=== PATIENT | male | born 1950 | race Caucasian/White ===

== ENCOUNTER 2018-08-23 18:08 | Inpatient (IN) | payer OTHER, MEDICAID ==
[~2018-08-23] VITALS: Ht 182.9 cm; Wt 90.7 kg
[~2018-08-23 18:08] MED LIST: ALBUTEROL SULF8.5 GM INH; ASPIR 8181 MG ORAL; AZITHROMYCIN250 MG ORAL; LEVOTHYROXINE25 MCG ORAL; METOPROLOL TART25 MG ORAL; PLAVIX75 MG ORAL; PRAVASTATIN SOD20 M1 PO; PROMETHAZINE-C118 M1 ORAL
[2018-08-23] MEDS ORDERED: ATORVASTATIN CA20 MG ORAL (18:21)
[2018-08-23] MEDS ORDERED: Aspirin Baby 81mg ORAL ONE (18:30)
--- NOTE | 2018-08-23 19:14 | NUR ---
ED Nurse Note:pt. came with c/o chest pain he is A/Ox4 ambulatory, blood sentt to labs, ASA given and pt. placed on cardiac monitor technician
--- NOTE | 2018-08-23 19:15 | NUR ---
ED Nurse Note: Report received from Ann Marie WALTER. Patient is resting calmy vss.
[2018-08-23 19:22] LABS: BASOPHILS % (AUTO) 1.1 % (0.0-2.0); EOSINOPHILS % (AUTO) 1.8 % (0.0-3.0); HEMATOCRIT 38.7 % (42.0-52.0); HEMOGLOBIN 13.1 G/DL (14.2-18.0); LYMPHOCYTES % (AUTO) 36.2 % (20.0-45.0); MEAN CORPUSCULAR VOLUME 91 FL (80-99); MONOCYTES % (AUTO) 4.2 % (1.0-10.0); NEUTROPHILS % (AUTO) 56.6 % (45.0-75.0); PLATELET COUNT 192 K/UL (150-450); RED BLOOD COUNT 4.27 M/UL (4.70-6.10); RED CELL DISTRIBUTION WIDTH 12.5 % (11.6-14.8); WHITE BLOOD COUNT 6.2 K/UL (4.8-10.8)
[2018-08-23 19:34] LABS: ANION GAP 9 mmol/L (5-15); BLOOD UREA NITROGEN 15 mg/dL (7-18); CALCIUM 9.3 MG/DL (8.5-10.1); CARBON DIOXIDE 26 MMOL/L (21-32); CHLORIDE 105 MMOL/L (98-107); CREATININE 1.1 MG/DL (0.55-1.30); POTASSIUM 3.8 MMOL/L (3.5-5.1); SODIUM 140 MMOL/L (136-145)
[2018-08-23 19:48] LABS: ALANINE AMINOTRANSFERASE 38 U/L (12-78); ALBUMIN 3.9 G/DL (3.4-5.0); ALBUMIN/GLOBULIN RATIO 1.2 (1.0-2.7); ALKALINE PHOSPHATASE 77 U/L (46-116); ASPARTATE AMINO TRANSFERASE 27 U/L (15-37); BILIRUBIN,TOTAL 0.4 MG/DL (0.2-1.0); CKMB 2.5 NG/ML (0.0-3.6); CREATINE KINASE 303 U/L (26-308)
[2018-08-23 19:50] VITALS: BP 120/67
--- NOTE | 2018-08-23 20:15 | NUR ---
ED Nurse Note: Patient resting calmly no s/s of acute distress. Patient reports no pain or discomfort at this time.
--- NOTE | 2018-08-23 21:48 | Emergency Room Report ---
History of Present Illness General Chief Complaint: Chest Pain Source: Patient Present Illness HPI Patient has a history of coronary artery disease. Patient status post stent placement. Patient presents emergency department today complaining acute onset of chest pain. Intermittently last few minutes throughout the last week. She complains of some shortness breath associated with it denies any leg pain leg swelling. Symptoms noted to be severe.No other modifying factors. No other associated signs and symptoms. No other complaints were noted. Allergies: Coded Allergies: No Known Allergies (Unverified , 12/17/12) Patient History Past Medical History: CAD, arrhyth Past Surgical History: PTCA Pertinent Family History: none Social History: Denies: smoking, alcohol use, drug use Reviewed Nursing Documentation: PMH: Agreed; PSxH: Agreed Nursing Documentation-PMH Past Medical History: No History, Except For Hx Cardiac Problems: Yes - arrythmia, stent Hx Hypertension: No Hx Pacemaker: No Hx Asthma: No Hx COPD: No Hx Diabetes: No Hx Cancer: No Hx Gastrointestinal Problems: Yes Hx Dialysis: No History Of Psychiatric Problem: No Hx Neurological Problems: Yes Hx Cerebrovascular Accident: No Hx Seizures: No Hx Vertigo: Yes Hx Syncope: Yes Hx Weakness: Yes Hx Fatigue: Yes Review of Systems All Other Systems: negative except mentioned in HPI Physical Exam Vital Signs Date Time Temp Pulse Resp B/P (MAP) Pulse Ox O2 Delivery O2 Flow Rate FiO2 08/23/18 18:11 98.2 77 16 127/73 97 Room Air Sp02 EP Interpretation: reviewed, normal General Appearance: normal inspection, well appearing, no apparent distress, alert Head: atraumatic Eyes: bilateral eye normal inspection ENT: normal ENT inspection, hearing grossly normal, normal voice Neck: normal inspection, full range of motion, supple, no bony tend Respiratory: normal inspection, lungs clear, normal breath sounds, no respiratory distress, no retraction, no wheezing Cardiovascular #1: regular rate, rhythm, no edema Gastrointestinal: normal inspection, normal bowel sounds, non tender, soft, no guarding, no hernia Genitourinary: no CVA tenderness Musculoskeletal: normal inspection, back normal, normal range of motion Neurologic: normal inspection, alert, responsive, speech normal Psychiatric: normal inspection, judgement/insight normal, mood/affect normal Skin: normal inspection, normal color, no rash Medical Decision Making Diagnostic Impression: Primary Impression: ACS (acute coronary syndrome) ER Course Patient presented to the emergency department today complaining of chest pain. Differential diagnoses include acute coronary syndrome, pulmonary embolism, pneumothorax, chest wall pain, pleurisy, pericarditis, acute anxiety reaction just to name a few. Given the severity of the patient's presentation I felt this is a highly complex patient. This patient required extensive workup. CBC , chemistry, EKG, chest x-ray, cardiac enzymes, liver profile were all obtained. 12-lead EKG performed for nontraumatic chest pain. [facility] documentation: EKG was performed. Please refer to below for interpretation. Patient had CBC and chemistry obtained. Both of which were normal. Patient's cardiac enzymes also normal. Patient had normal chest x-ray. However given patient's presentation history of cardiac disease of felt the patient quite admission further treatment. Case was discussed with Dr. Maher for admission. Labs Test 08/23/18 19:00 White Blood Count 6.2 K/UL (4.8-10.8) Red Blood Count 4.27 M/UL (4.70-6.10) Hemoglobin 13.1 G/DL (14.2-18.0) Hematocrit 38.7 % (42.0-52.0) Mean Corpuscular Volume 91 FL (80-99) Mean Corpuscular Hemoglobin 30.6 PG (27.0-31.0) Mean Corpuscular Hemoglobin Concent 33.8 G/DL (32.0-36.0) Red Cell Distribution Width 12.5 % (11.6-14.8) Platelet Count 192 K/UL (150-450) Mean Platelet Volume 6.3 FL (6.5-10.1) Neutrophils (%) (Auto) 56.6 % (45.0-75.0) Lymphocytes (%) (Auto) 36.2 % (20.0-45.0) Monocytes (%) (Auto) 4.2 % (1.0-10.0) Eosinophils (%) (Auto) 1.8 % (0.0-3.0) Basophils (%) (Auto) 1.1 % (0.0-2.0) Sodium Level 140 MMOL/L (136-145) Potassium Level 3.8 MMOL/L (3.5-5.1) Chloride Level 105 MMOL/L (98-107) Carbon Dioxide Level 26 MMOL/L (21-32) Anion Gap 9 mmol/L (5-15) Blood Urea Nitrogen 15 mg/dL (7-18) Creatinine 1.1 MG/DL (0.55-1.30) Estimat Glomerular Filtration Rate > 60 mL/min (>60) Glucose Level 134 MG/DL (74-106) Calcium Level 9.3 MG/DL (8.5-10.1) Total Bilirubin 0.4 MG/DL (0.2-1.0) Aspartate Amino Transf (AST/SGOT) 27 U/L (15-37) Alanine Aminotransferase (ALT/SGPT) 38 U/L (12-78) Alkaline Phosphatase 77 U/L (46-116) Total Creatine Kinase 303 U/L (26-308) Creatine Kinase MB 2.5 NG/ML (0.0-3.6) Creatine Kinase MB Relative Index 0.8 Troponin I 0.000 ng/mL (0.000-0.056) Pro-B-Type Natriuretic Peptide 147 pg/mL (0-125) Total Protein 7.2 G/DL (6.4-8.2) Albumin 3.9 G/DL (3.4-5.0) Globulin 3.3 g/dL Albumin/Globulin Ratio 1.2 (1.0-2.7) EKG Diagnostic Results Rate: normal Rhythm: NSR ST Segments: other - Right bundle-branch block Rhythm Strip Diag. Results EP Interpretation: yes Rate: 75 Rhythm: NSR, no PVC's, no ectopy Chest X-Ray Diagnostic Results Chest X-Ray Diagnostic Results : Chest X-Ray Ordered: Yes # of Views/Limited/Complete: 1 View Indication: Chest Pain EP Interpretation: Yes Interpretation: no consolidation, no effusion, no pneumothorax, no acute cardiopulmonary disease Impression: No acute disease Electronically Signed by: Electronically signed by Jay Cox MD Last Vital Signs Date Time Temp Pulse Resp B/P (MAP) Pulse Ox O2 Delivery O2 Flow Rate FiO2 08/23/18 19:50 97.6 66 16 120/67 97 Room Air Status: improved Disposition: ADMITTED INPATIENT Condition: Serious Referrals: YANNI CARREON (PCP) Jay Cox MD Aug 23, 2018 21:48
--- NOTE | 2018-08-23 21:54 | NUR ---
ED Nurse Note: Report called into Carmen RN, patient ready for transport to [facility], ambulatory with steady gait, no reported wounds, vss, no s/s of acute distress. Patient accompanied by ER-tech and RN to floor.
[2018-08-23 22:00] VITALS: BP 139/77
--- NOTE | 2018-08-23 22:00 | NUR ---
NURSE NOTES: Received report from Roro Jeffrey RN. Patient transported via gurney but ambulated to bed with no difficulty. Patient on room air. No signs of SOB. AOx4, no complaints of chest pain at this time but is complaining of right toe pain. IV site on Right wrist is intact ans patent. Dr. Maher notified regarding patient's whereabouts and for admission orders. New orders done and carried out. Skin is intact. Call light within reach. Bed brakes engaged.
[2018-08-23] MEDS ORDERED: Enalaprilat 2.5mg/2ml Inj IV PRN (22:30)
[2018-08-23] MEDS ORDERED: Morphine Sulfate 2mg/ml Inj IVP PRN (22:30)
[2018-08-23] MEDS ORDERED: Albuterol/Ipratropium 3ml neb HHN PRN (22:30)
[2018-08-23] MEDS ORDERED: Nitroglycerin Subl 0.4mg tab SL PRN (22:30)
[2018-08-23] MEDS ORDERED: Miralax 17gm pkt ORAL PRN (22:30)
[2018-08-23] MEDS ORDERED: dilTIAZem HCl 25mg/5ml Inj IV PRN (22:30)
[2018-08-23] MEDS ORDERED: Ketorolac 30mg Inj IV PRN (22:30)
[2018-08-24] VITALS: BP 127/66
--- NOTE | 2018-08-24 03:59 | NUR ---
NURSE NOTES: Patient requesting to go home in the morning. Informed that his request will be addressed in AM. Patient has no distress, no SOB.
[2018-08-24 04:00] VITALS: BP 130/60
[2018-08-24] MEDS: Levothyroxine 25mcg tab ORAL SCH (06:01)
--- NOTE | 2018-08-24 06:02 | NUR ---
NURSE NOTES: Synthroid 25mcg to be given, patient refused medication as verbalized "I no longer take this medication". Will request to have this discontinue in AM.
--- NOTE | 2018-08-24 07:23 | NUR ---
NURSE NOTES: Received report from SABA Morales. Patient is resting in bed, in stable condition. No s/sx of SOB, breathing is even and unlabored. Denies any presence of pain or discomfort at this time. Bed is in lowest position, brakes engaged. Call light is kept within easy reach. Will continue to monitor patient.
--- NOTE | 2018-08-24 07:36 | NUR ---
HAND-OFF: Report given to SABA Swann.
[2018-08-24 08:00] VITALS: BP 132/68
[2018-08-24 08:04] LABS: BASOPHILS % (AUTO) 0.6 % (0.0-2.0); EOSINOPHILS % (AUTO) 2.2 % (0.0-3.0); HEMATOCRIT 40.4 % (42.0-52.0); HEMOGLOBIN 13.8 G/DL (14.2-18.0); LYMPHOCYTES % (AUTO) 37.4 % (20.0-45.0); MEAN CORPUSCULAR VOLUME 90 FL (80-99); MONOCYTES % (AUTO) 4.7 % (1.0-10.0); NEUTROPHILS % (AUTO) 55.1 % (45.0-75.0); PLATELET COUNT 183 K/UL (150-450); RED BLOOD COUNT 4.49 M/UL (4.70-6.10); RED CELL DISTRIBUTION WIDTH 12.1 % (11.6-14.8); WHITE BLOOD COUNT 5.6 K/UL (4.8-10.8)
[2018-08-24 08:23] LABS: INR 0.9 (0.9-1.1)
[2018-08-24] MEDS: Aspirin Baby 81mg ORAL SCH (08:44)
[2018-08-24] MEDS: Metoprolol 25mg tab ORAL SCH ×3 (08:44→17:45)
[2018-08-24] MEDS: Heparin 5000 units/ml inj SUBQ SCH ×2 (08:44→20:42)
[2018-08-24 08:49] LABS: CHOLESTEROL 180 MG/DL (< 200); HDL CHOLESTEROL 29 MG/DL (40-60); TRIGLYCERIDES 200 MG/DL (30-150)
--- NOTE | 2018-08-24 10:25 | NUR ---
CASE MANAGEMENT:REVIEW 68 YR OLD MALE FROM HOME TO ER CC; CHEST PAIN THAT RADIATES TO BACK. SOB. N/V SI: ACS 98.2 77 16 127/73 97% ON RA H/H-13.1/38.7 TROPONIN(-) IS: ASA GIVEN STAINED GLASS GLAZIER ASA PO CXR : TO TELEMETRY IS: PLAVIX PO QD LOPRESSOR PO BID ASA PO QD HEPARIN SQ Q12 SYNTHROID PO QAM PLAN: CARDIAC CONSULT 2DECHO
--- NOTE | 2018-08-24 10:33 | NUR ---
INTERQUAL CRITERIA MET FOR OBSERVATION
--- NOTE | 2018-08-24 10:57 | NUR ---
INSURANCE ALL CLINICALS AND REVIEWS FAXED TO: GORDON BENSONM:SHANNON F:[phone] [place] [phone] P:[phone] [place] [phone]
--- NOTE | 2018-08-24 11:47 | Diagnostic Imaging Report ---
Indication: Cough Comparison: 11/24/2015 A single view chest radiograph was obtained. Findings: Cardiomediastinal appearance is within normal limits for age. The lungs are clear. Pulmonary vascularity is appropriate. The diaphragmatic contour is smooth and costophrenic angles are sharp. No pleural effusions are identified. The bones are unremarkable. Impression: No acute findings
--- NOTE | 2018-08-24 11:51 | History and Physical ---
History of Present Illness General Date patient seen: Aug 24, 2018 Reason for Hospitalization: Chest Pain Present Illness HPI 68 year old male with hx cindy coronary artery disease, status post stent placement presented to emergency department today complaining acute onset of chest pain. Intermittently last few minutes throughout the last week. She complains of some shortness breath associated with it denies any leg pain leg swelling. He is admitted to telemetry for further work up. Allergies: Coded Allergies: No Known Allergies (Unverified , 12/17/12) Medication History Scheduled Aspirin* (Aspir 81*), 81 MG ORAL DAILY, (Reported) Atorvastatin Calcium* (Atorvastatin Calcium*), 20 MG ORAL BEDTIME, (Reported) Clopidogrel Bisulfate* (Plavix*), 75 MG ORAL DAILY, (Reported) Levothyroxine Sodium* (Levothyroxine Sodium*), 25 MCG ORAL DAILY, (Reported) Metoprolol Tartrate* (Metoprolol Tartrate*), 50 MG ORAL BID, (Reported) Miscellaneous Medications Pravastatin Sod* (Pravastatin Sod*), 20 MG PO, (Reported) Patient History Healthcare decision maker Resuscitation status Full Code Advanced Directive on File No Past Medical/Surgical History Past Medical/Surgical History: (1) H/O heart artery stent (2) Hypothyroidism (3) History of hypertension Review of Systems All Other Systems: negative except mentioned in HPI Physical Exam General Appearance: WD/WN Lines, tubes and drains: peripheral, central line HEENT: normocephalic, atraumatic Neck: non-tender, normal alignment Respiratory/Chest: chest wall non-tender, lungs clear Breasts: no masses Cardiovascular/Chest: normal peripheral pulses, normal rate Abdomen: normal bowel sounds Genitourinary/Rectal: normal genital exam Last 24 Hour Vital Signs Date Time Temp Pulse Resp B/P (MAP) Pulse Ox O2 Delivery O2 Flow Rate FiO2 08/24/18 09:00 Room Air 08/24/18 08:44 76 132/68 08/24/18 08:00 97.9 76 16 132/68 (89) 97 76 08/24/18 08:00 71 08/24/18 04:04 81 08/24/18 04:00 96.4 79 18 130/60 (83) 95 79 08/24/18 00:00 97.5 76 18 127/66 (86) 96 76 08/23/18 23:19 76 1/10/19 22:28 Room Air 08/23/18 22:27 74 08/23/18 22:00 97.5 63 18 139/77 (97) 95 63 08/23/18 21:56 97.6 66 16 129/84 97 Room Air 08/23/18 19:50 97.6 66 16 120/67 97 Room Air 08/23/18 19:16 77 16 Room Air 08/23/18 18:11 98.2 77 16 127/73 97 Room Air Intake and Output 08/23/18 08/24/18 19:00 07:00 Intake Total 0 ml Balance 0 ml Intake Oral 0 ml # Voids 2 Laboratory Tests Test 08/23/18 19:00 08/24/18 07:13 White Blood Count 6.2 K/UL (4.8-10.8) 5.6 K/UL (4.8-10.8) Red Blood Count 4.27 M/UL (4.70-6.10) L 4.49 M/UL (4.70-6.10) L Hemoglobin 13.1 G/DL (14.2-18.0) L 13.8 G/DL (14.2-18.0) L Hematocrit 38.7 % (42.0-52.0) L 40.4 % (42.0-52.0) L Mean Corpuscular Volume 91 FL (80-99) 90 FL (80-99) Mean Corpuscular Hemoglobin 30.6 PG (27.0-31.0) 30.8 PG (27.0-31.0) Mean Corpuscular Hemoglobin Concent 33.8 G/DL (32.0-36.0) 34.2 G/DL (32.0-36.0) Red Cell Distribution Width 12.5 % (11.6-14.8) 12.1 % (11.6-14.8) Platelet Count 192 K/UL (150-450) 183 K/UL (150-450) Mean Platelet Volume 6.3 FL (6.5-10.1) L 6.2 FL (6.5-10.1) L Neutrophils (%) (Auto) 56.6 % (45.0-75.0) 55.1 % (45.0-75.0) Lymphocytes (%) (Auto) 36.2 % (20.0-45.0) 37.4 % (20.0-45.0) Monocytes (%) (Auto) 4.2 % (1.0-10.0) 4.7 % (1.0-10.0) Eosinophils (%) (Auto) 1.8 % (0.0-3.0) 2.2 % (0.0-3.0) Basophils (%) (Auto) 1.1 % (0.0-2.0) 0.6 % (0.0-2.0) Sodium Level 140 MMOL/L (136-145) Potassium Level 3.8 MMOL/L (3.5-5.1) Chloride Level 105 MMOL/L (98-107) Carbon Dioxide Level 26 MMOL/L (21-32) Anion Gap 9 mmol/L (5-15) Blood Urea Nitrogen 15 mg/dL (7-18) Creatinine 1.1 MG/DL (0.55-1.30) Estimat Glomerular Filtration Rate > 60 mL/min (>60) Glucose Level 134 MG/DL (74-106) H Calcium Level 9.3 MG/DL (8.5-10.1) Total Bilirubin 0.4 MG/DL (0.2-1.0) Aspartate Amino Transf (AST/SGOT) 27 U/L (15-37) Alanine Aminotransferase (ALT/SGPT) 38 U/L (12-78) Alkaline Phosphatase 77 U/L (46-116) Total Creatine Kinase 303 U/L (26-308) Creatine Kinase MB 2.5 NG/ML (0.0-3.6) Creatine Kinase MB Relative Index 0.8 Troponin I 0.000 ng/mL (0.000-0.056) 0.004 ng/mL (0.000-0.056) Pro-B-Type Natriuretic Peptide 147 pg/mL (0-125) H Total Protein 7.2 G/DL (6.4-8.2) Albumin 3.9 G/DL (3.4-5.0) Globulin 3.3 g/dL Albumin/Globulin Ratio 1.2 (1.0-2.7) Prothrombin Time 9.6 SEC (9.30-11.50) Prothromb Time International Ratio 0.9 (0.9-1.1) Activated Partial Thromboplast Time 30 SEC (23-33) C-Reactive Protein, Quantitative < 0.4 mg/dL (0.00-0.90) Triglycerides Level 200 MG/DL (30-150) H Cholesterol Level 180 MG/DL (< 200) LDL Cholesterol 116 mg/dL (<100) H HDL Cholesterol 29 MG/DL (40-60) L Cholesterol/HDL Ratio 6.2 (3.3-4.4) H Thyroid Stimulating Hormone (TSH) 4.414 uiU/mL (0.358-3.740) Height (Feet): 6 Height (Inches): 0.00 Weight (Pounds): 200 Medications Current Medications Medications (Trade) Dose Ordered Sig/Lizbeth Route PRN Reason Start Time Stop Time Status Last Admin Dose Admin Acetaminophen (Tylenol) 650 mg Q4H PRN ORAL FEVER 08/23/18 22:30 09/22/18 22:29 Albuterol/ Ipratropium (Albuterol/ Ipratropium) 3 ml EVERY 4 HOURS PRN HHN Shortness of Breath 08/23/18 22:30 08/28/18 22:29 Aspirin (ASA) 162 mg DAILY ORAL 08/24/18 09:00 09/23/18 08:59 08/24/18 08:44 Atorvastatin Calcium (Lipitor) 20 mg BEDTIME ORAL 08/24/18 21:00 09/23/18 20:59 Clopidogrel Bisulfate (Plavix) 75 mg DAILY ORAL 08/24/18 09:00 09/23/18 08:59 08/24/18 08:44 Diltiazem HCl (Cardizem) 10 mg EVERY HOUR PRN IV heart rate more than 120, 08/23/18 22:30 09/22/18 22:29 Enalaprilat (Vasotec) 2.5 mg EVERY 6 HOURS PRN IV sbp more than 160 08/23/18 22:30 09/22/18 22:29 Heparin Sodium (Porcine) (Heparin 5000 units/ml) 5,000 units EVERY 12 HOURS SUBQ 08/24/18 09:00 09/23/18 08:59 Ketorolac Tromethamine (Toradol 30mg) 30 mg Q6H PRN IV moderate pain ( 4-6) 08/23/18 22:30 08/28/18 22:29 Levothyroxine Sodium (Synthroid) 25 mcg ACBREAKFAST ORAL 08/24/18 06:30 09/23/18 06:29 Metoprolol Tartrate (Lopressor) 50 mg BID ORAL 08/24/18 09:00 09/23/18 08:59 08/24/18 08:44 Morphine Sulfate (Morphine Sulfate) 2 mg EVERY 4 HOURS PRN IVP severe Pain (Pain Scale 7-10) 08/23/18 22:30 08/30/18 22:29 08/23/18 23:13 Nitroglycerin (Ntg) 0.4 mg Q5M PRN SL Prn Chest Pain 08/23/18 22:30 09/22/18 22:29 Ondansetron HCl (Zofran) 4 mg Q6H PRN IVP Nausea & Vomiting 08/23/18 22:30 09/22/18 22:29 Polyethylene Glycol (Miralax) 17 gm DAILYPRN PRN ORAL Constipation 08/23/18 22:30 09/22/18 22:29 Temazepam (Restoril) 15 mg HSPRN PRN ORAL Insomnia 08/23/18 22:30 08/30/18 22:29 Assessment/Plan Problem List: (1) ACS (acute coronary syndrome) ICD Codes: I24.9 - Acute ischemic heart disease, unspecified SNOMED: 359759151 (2) Hypothyroidism ICD Codes: E03.9 - Hypothyroidism, unspecified SNOMED: 43238117 (3) History of hypertension ICD Codes: Z86.79 - Personal history of other diseases of the circulatory system SNOMED: 124094755 (4) H/O heart artery stent ICD Codes: Z95.5 - Presence of coronary angioplasty implant and graft SNOMED: 12995857, 473022209 Assessment/Plan serial ekg, troponin were negative for acute changes echocardiogram cardiology to see synthroid replacement monitor BP dvt prophylaxis. Liz Maher MD Aug 24, 2018 11:51
[2018-08-24 12:00] VITALS: BP 124/71
--- NOTE | 2018-08-24 14:30 | NUR ---
HAND-OFF: Report given to SABA Jewell.
--- NOTE | 2018-08-24 15:00 | NUR ---
NURSE NOTES: received patient report from rajani aguiar. patient is stable. no acute distress noted. ambulatory, staedy. no arrythmias reported during the night. will continue plans of care.
[2018-08-24 16:00] VITALS: BP 138/63
--- NOTE | 2018-08-24 17:32 | Cardiology Report ---
APPROVED REPORT EXAM: Two-dimensional and M-mode echocardiogram with Doppler and color Doppler. INDICATION Left ventricular function M-Mode DIMENSIONS IVSd0.8 (0.7-1.1cm)Left Atrium (MM)3.0 (1.6-4.0cm) LVDd3.4 (3.5-5.6cm)Aortic Root3.3 (2.0-3.7cm) PWd1.1 (0.7-1.1cm)Aortic Cusp Exc.1.8 (1.5-2.0cm) LVDs2.2 (2.5-4.0cm) PWs1.3 cm Normal left ventricular chamber size, systolic function and wall motion. Left ventricular ejection fraction estimated to be 60 %. Anterior Echo-free space, may be due to pericardial fat or effusion. All other cardiac chamber sizes are within normal limits. Focal aortic valve sclerosis with adequate cusp excursion. Thickened mitral valve leaflets with normal excursion. Mitral annulus and aortic root calcification. Pulmonic valve not well visualized. Normal tricuspid valve structure. IVC dilated at 2.6 cm with physiologic collapse suggestive of increased RA pressure. A color flow and spectral Doppler study was performed and revealed: Mild aortic regurgitation. Mild mitral regurgitation. Mitral diastolic velocities suggest reduced left ventricular relaxation c/w mild LV diastolic dysfunction (Grade I ). Trace to mild tricuspid regurgitation. Tricuspid systolic velocities suggests peak right ventricular systolic pressure of 27 mmHg
--- NOTE | 2018-08-24 17:57 | Cardiology Report ---
APPROVED REPORT EKG Measurement Heart [id number] Sinus rhythm with 1st degree AV block Possible Left atrial enlargement Left axis deviation Right bundle branch block Left ventricular hypertrophy with repolarization abnormality Abnormal ECG
--- NOTE | 2018-08-24 19:08 | NUR ---
HAND-OFF: Report given to evelin aguiar.
--- NOTE | 2018-08-24 19:18 | Cardiology Progress Note ---
Assessment/Plan Assessment/Plan cp only seconcd recurent not exertionl ekg not changed since 2016 all trop neg ok to dc home with fu with cardiologsit to consider outpt stress testing [id number] Objective Last 24 Hour Vital Signs Date Time Temp Pulse Resp B/P (MAP) Pulse Ox O2 Delivery O2 Flow Rate FiO2 08/24/18 16:24 76 08/24/18 16:00 98.2 74 16 138/63 (88) 96 74 08/24/18 12:00 98.7 66 16 124/71 (88) 97 66 08/24/18 12:00 64 08/24/18 09:00 Room Air 08/24/18 08:44 76 132/68 08/24/18 08:00 97.9 76 16 132/68 (89) 97 76 08/24/18 08:00 71 08/24/18 04:04 81 08/24/18 04:00 96.4 79 18 130/60 (83) 95 79 08/24/18 00:00 97.5 76 18 127/66 (86) 96 76 08/23/18 23:19 76 08/23/18 22:28 Room Air 08/23/18 22:27 74 08/23/18 22:00 97.5 63 18 139/77 (97) 95 63 08/23/18 21:56 97.6 66 16 129/84 97 Room Air 08/23/18 19:50 97.6 66 16 120/67 97 Room Air Intake and Output 08/23/18 08/24/18 18:59 06:59 Intake Total 0 ml Balance 0 ml Intake Oral 0 ml # Voids 2 Laboratory Tests Test 08/24/18 07:13 White Blood Count 5.6 K/UL (4.8-10.8) Red Blood Count 4.49 M/UL (4.70-6.10) L Hemoglobin 13.8 G/DL (14.2-18.0) L Hematocrit 40.4 % (42.0-52.0) L Mean Corpuscular Volume 90 FL (80-99) Mean Corpuscular Hemoglobin 30.8 PG (27.0-31.0) Mean Corpuscular Hemoglobin Concent 34.2 G/DL (32.0-36.0) Red Cell Distribution Width 12.1 % (11.6-14.8) Platelet Count 183 K/UL (150-450) Mean Platelet Volume 6.2 FL (6.5-10.1) L Neutrophils (%) (Auto) 55.1 % (45.0-75.0) Lymphocytes (%) (Auto) 37.4 % (20.0-45.0) Monocytes (%) (Auto) 4.7 % (1.0-10.0) Eosinophils (%) (Auto) 2.2 % (0.0-3.0) Basophils (%) (Auto) 0.6 % (0.0-2.0) Prothrombin Time 9.6 SEC (9.30-11.50) Prothromb Time International Ratio 0.9 (0.9-1.1) Activated Partial Thromboplast Time 30 SEC (23-33) Troponin I 0.004 ng/mL (0.000-0.056) C-Reactive Protein, Quantitative < 0.4 mg/dL (0.00-0.90) Triglycerides Level 200 MG/DL (30-150) H Cholesterol Level 180 MG/DL (< 200) LDL Cholesterol 116 mg/dL (<100) H HDL Cholesterol 29 MG/DL (40-60) L Cholesterol/HDL Ratio 6.2 (3.3-4.4) H Thyroid Stimulating Hormone (TSH) 4.414 uiU/mL (0.358-3.740) Gold Burdick MD Aug 24, 2018 19:18
[2018-08-24 20:00] VITALS: BP 142/75
[2018-08-25] VITALS: BP 132/71
[2018-08-25 04:00] VITALS: BP 124/90
--- NOTE | 2018-08-25 05:15 | Consultation ---
DATE OF CONSULTATION: 08/24/2018 CARDIOLOGY CONSULTATION CONSULTING PHYSICIAN: Gold Burdick M.D. REFERRING PHYSICIAN: Liz Maher M.D. REASON FOR REFERRAL: Chest pain. HISTORY OF PRESENT ILLNESS: This is a middle-aged gentleman who has history of coronary artery disease, status post stent five years ago at [facility]. The patient indicates over the past few days, he had intermittent episodes of pain in the chest, left-sided that lasted a few seconds in duration, but resolved when takes a deep breath and relaxes. He really does not have chest pain with activity. He is active only around the house with house chores, but does not really have any shortness of breath or chest pain with activity. Most of the time, he experienced the pain is at rest. No relationships specifically with activity. There is no PND or orthopnea. No palpitations. He does use three pillows for comfort. No dizziness or lightheadedness on standing. PAST MEDICAL HISTORY: Positive for high cholesterol. No history of heart attack. No cancer. No stroke. No hepatitis or tuberculosis. No asthma. No emphysema. No ulcers. No kidney problems, liver problems, thyroid problems, anemia, or arthritis although he has had fatty liver previously. He has had coronary artery disease as mentioned with one stent and he has been compliant with medications. ALLERGIES: Not really allergic to any medication although Motrin causes stomach upset. MEDICATIONS AT HOME: Includes aspirin, Plavix, Toprol-XL, and cholesterol medication. REVIEW OF SYSTEMS: GASTROINTESTINAL: Negative. GENITOURINARY: Negative. PULMONARY: Negative although he has a recent cold and upper respiratory tract and sinus infection. CONSTITUTIONAL: Minor night sweats occasionally, not recently. NEUROLOGICAL: Negative. PHYSICAL EXAMINATION: GENERAL: Shows to be a middle-aged gentleman, in no respiratory distress. NECK: Supple. No jugular venous distention. No abdominojugular reflux noted. LUNGS: Clear to auscultation and percussion. CARDIAC: S1 is normal. S2 is normal. Regular rate and rhythm. No heaves, thrills, gallops, or rubs are noted. ABDOMEN: Soft and nontender. Positive bowel sounds. EXTREMITIES: There is no clubbing, cyanosis, or edema. NEUROLOGICAL: He is awake, alert, and responsive, in no apparent respiratory distress. LABORATORY AND DIAGNOSTIC DATA: Laboratory values; white count of 5.6, hemoglobin 13.8, and platelet count 183. Sodium is 140, potassium 3.8, chloride 105, bicarbonate 26, BUN of 15, creatinine 1.1, and glucose of 134. His troponin 0.00 and 0.04. Total cholesterol is 180 with LDL of 116. TSH of 4.14. Coags, INR of 0.9 and a PTT of 30. His EKG shows left bundle-branch conduction defect, left anterior fascicular block, left axis deviation, and delay in R-wave progression. An echocardiogram has formerly performed showing normal ejection fraction and wall motion, mild aortic regurgitation, and mild diastolic relaxation abnormalities. ASSESSMENT AND PLAN: 1. Atypical chest pain. 2. Coronary artery disease history. 3. History of fatty liver. Dr. Maher, this patient was seen in cardiac consultation. The patient does have known coronary disease; however, the pain that he described was sharp in nature. It lasts only a few seconds, and is not one suggestive of coronary ischemic pain. He does not have this pain with activity, and he does not have any acute ST-segment changes on his EKG. Electrocardiogram is not changed since his prior EKG back in 2016. So, I suspect that although he has coronary disease this particular pain is probably unlikely to be ischemic. He has no cardiac enzyme abnormalities. He should be discharged home. Follow up with his primary pack press operator. Consider performing an outpatient stress testing in the future. Gold Burdick M.D. DR: MAYI JOB#: [id number] CC:
[2018-08-25] MEDS: Levothyroxine 25mcg tab ORAL SCH (05:54)
--- NOTE | 2018-08-25 07:57 | NUR ---
NURSE NOTES: Received bedside report from Saman RN. Pt. in bed, a/o x 4. No sign of distress. Denies pain at present. IV at right wrist #20g. in placed SL. Call light within reach. Will cont. to monitor.
[2018-08-25 08:00] VITALS: BP 122/68
[2018-08-25] MEDS: Heparin 5000 units/ml inj SUBQ SCH (09:00)
[2018-08-25 09:17] VITALS: BP 122/68
[2018-08-25] MEDS: Aspirin Baby 81mg ORAL SCH (09:17)
[2018-08-25] MEDS: Metoprolol 25mg tab ORAL SCH (09:17)
--- NOTE | 2018-08-25 10:10 | NUR ---
Discharge: Patient is being discharged to home from medical care. Awake, alert and oriented x4. After care instructions were given. Patient verbalized understanding of after care instructions upon discharge. All medical devices such as IV, steel pan form placing supervisor and ID band were removed. Patient ambulated out with all personal belongings with steady gait.
--- NOTE | 2018-08-27 06:57 | Discharge Summary ---
Discharge Summary Discharge Summary _ DATE OF ADMISSION: 08/23/2018 DATE OF DISCHARGE: 08/25/2018 DISCHARGED BY: Dr. Maher REASON FOR ADMISSION: 68 years old male with past medical history of coronary artery disease, status post coronary angioplasty with stent placement, hyperlipidemia, , hypothyroidism , presented to emergency department complaining of acute onset of chest pain. Chest pain described as intermittent, lasting only seconds , throughout the last week. Chest pain not exertional. Patient complained of shortness of breath associated with the chest pain. Patient denied leg pain or swelling. Upon evaluation in the emergency department vital signs were stable. Laboratory workup was unremarkable. Troponin was negative. EKG revealed normal sinus rhythm m no acute ischemic changes, right bundle branch block. ProBNP 147. Chest x-ray revealed no acute cardiopulmonary pathology. Patient admitted with chest pain, rule out acute coronary syndrome. CONSULTANTS: disease and insect control boss Dr. Burdick [facility] COURSE: Patient admitted to telemetry floor. Career Development Facilitator followed. Patient was continued on antiplatelet therapy with Aspirin and Plavix. Pain management was addressed. Nitroglycerin was on board as needed Serial troponin were negative ECG revealed no acute ischemic changes. Patient was ruled out for acute [place]. ECHO revealed preserved ejection fraction- 60%. No evidence of wall motion abnormality. Right ventricular systolic pressure of 27. Lipid panel revealed elevated LDL 116, elevated triglycerides 200. Patient was continued on statin. Patient was educated on low-fat low-cholesterol cardiac diet and compliance with statin. Patient was continued on beta vinicio. Blood pressure remained stable with metoprolol. Pulse oximetry was stable on room air. Per disease and insect control boss, even though patient had a coronary artery disease , this particular pain was unlikely to be ischemic , given no cardiac enzyme abnormality ,no change on EKG from 2016. Character of pain (not exertional, lasting only few seconds) was also not suggestive of coronary ischemic disease. Per disease and insect control boss patient had atypical chest pain . Career Development Facilitator recommended consider performing outpatient stress test in the future, given history of coronary artery disease, s/p angioplasty with stent placement. DVT prophylaxis provided. Synthroid continued. Chest pain resolved. Patient was stable for discharge home. Outpatient follow-up with a primary care provider and disease and insect control boss. FINAL DIAGNOSES: Atypical chest pain Coronary artery disease Status post coronary angioplasty with stent placement Hypertension Hypothyroidism Hyperlipidemia DISCHARGE MEDICATIONS: See Medication Reconciliation list. DISCHARGE INSTRUCTIONS: Patient was discharged home . Follow up with primary care provider in one week. Recommended to consider outpatient stress test in future. I have been assigned to dictate discharge summary for this account. I was not involved in the patient's management. Marlena Meier NP Aug 27, 2018 06:57
== END 2018-08-25 10:10 | disposition home or self-care (01) | DRG 313 ==
LOC: EMR 19:02 → 2E 19:30 → EDBEDREQ 20:53 → 2E 22:32
DX: R07.89 Other chest pain (principal); I25.10 Atherosclerotic heart disease of native coronary artery without angina pectoris; Z95.5 Presence of coronary angioplasty implant and graft; I45.10 Unspecified right bundle-branch block; E03.9 Hypothyroidism, unspecified; I10 Essential (primary) hypertension; E78.5 Hyperlipidemia, unspecified; Z79.02 Long term (current) use of antithrombotics/antiplatelets; Z79.82 Long term (current) use of aspirin
CPT/HCPCS: 36415; 71045; 80053; 80061; 82550; 82553; 83880; 84443; 84484; 85025; 85610; 85730; 86140; 93005; 93306; 94664; 99285